=== PATIENT | male | born 1980 | race Asian ===

== ENCOUNTER 2018-05-18 17:34 | Emergency (ER) | payer OTHER ==
[2018-05-18 17:43] VITALS: BP 155/91; PULSE 99; TEMP 98; BMI 28.1
[2018-05-18] MEDS ORDERED: IBUPROFEN 600 MG TABLET (FP) PO ONE ×2 (18:18→18:20)
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
== END 2018-05-18 19:11 | disposition home or self-care (01) ==
LOC: JERFT 17:34
DX: M25.561 Pain in right knee (principal); V43.52XA Car driver injured in collision with other type car in traffic accident, initial encounter; Y92.414 Local residential or business street as the place of occurrence of the external cause; Y93.89 Activity, other specified; Y99.8 Other external cause status
CPT/HCPCS: 73564-TC-RT-FY; 99281-25